=== PATIENT | male | born 1965 | race African-American/Black ===

== ENCOUNTER 2020-07-18 20:44 | Emergency (ER) | payer OTHER ==
[2020-07-18 21:11] VITALS: TEMP 98.6; BMI 22.4
[2020-07-18 22:47] LABS: BASO % 0.6 % (0-2.0); EOS % 0.7 % (0-4.5); HEMATOCRIT 40.2 % (35.4-49); HEMOGLOBIN 13.5 GM/dL (11.7-16.9); LYMPH % 17.4 % (8-40); MCH 34.2 pg (25.7-33.7); MCHC 33.6 g/dl (32.0-35.9); MEAN CELL VOLUME 101.8 fl (80-96); MEAN PLT VOLUME 9.5 fl (7.5-11.1); MONO % 8.6 % (3.8-10.2); NEUT % 72.7 % (42.8-82.8); PLATELET COUNT 209 K/MM3 (134-434); RBC 3.95 M/mm3 (4.00-5.60); RDW 13.4 % (11.9-15.9); WHITE BLOOD COUNT 14.2 K/mm3 (4.0-10.0)
[2020-07-18 22:56] LABS: INR 1.02 (0.83-1.09)
--- NOTE | 2020-07-18 22:57 | PDOC ---
Documentation entered by Margie Carrion SCRIBE, acting as scribe for Leanna Mack DO. Leanna Mack, : This documentation has been prepared by the Sheyla matthews Xhesika, SCRIBE, under my direction and personally reviewed by me in its entirety. I confirm that the documentation accurately reflects all work, treatment, procedures, and medical decision making performed by me. Attending Attestation - Resident Resident Name: Juan Echevarria - ED Attending Attestation I have performed the following: I have examined & evaluated the patient, The case was reviewed & discussed with the resident, I agree w/resident's findings & plan, Exceptions are as noted - HPI HPI: 07/18/20 22:38 The patient is a 54y/o M with a pmh of alcohol, cocaine and marijuana abuse who presents to the ED for detox. Pt states he last used cocaine yesterday. Pt reports abdominal pain and states he's hungry. Pt denies any CP, SOB, fevers, chills, N/V/D. Allergies: Per Nursing Records - Physicial Exam PE: 07/18/20 22:40 GENERAL: Awake, alert, and oriented, in no acute distress. +poor dentition HEAD: No signs of trauma EYES: PERRLA, EOMI, sclera anicteric, conjunctiva clear ENT: Auricles normal inspection, hearing grossly normal, nares patent, oropharynx clear without exudates. Moist mucosa NECK: Normal ROM, supple, no lymphadenopathy, JVD, or masses LUNGS: Breath sounds equal, clear to auscultation bilaterally. No wheezes, and no crackles HEART: Regular rate and rhythm, normal S1 and S2, no murmurs, rubs or gallops ABDOMEN: Soft, nontender, normoactive bowel sounds. No guarding, no rebound. No masses EXTREMITIES: +R arm 1inch healing laceration. Normal range of motion, no edema. No clubbing or cyanosis. NEUROLOGICAL: Cranial nerves II through XII grossly intact. SKIN: Warm, Dry, normal turgor. - Medical Decision Making 07/18/20 22:52 a/p: 54yo male with hx of etoh abuse and cocaine use requesting detox -denies si/hi -c/o dental caries -c/o upper abd pain, no n/v/d -no cp/sob -last use was yesterday -not actively withdraw -will send labs -call placed to [facility] - no bed available -will monitor and reassess 07/18/20 23:21 wbc 14 lac on arm without abscess, but need abx and dental caries - will start clinda, no dental abscess present 07/18/20 23:31 potassium hemolyzed lipase neg trop neg ua neg 07/18/20 23:50 labs reviewed pending [facility] placement in the am pt signed out to the [facility] ED team pending [facility] in the am for detox Heart Score/ECG Review - ECG Intrepretation Comment:: 07/18/20 23:17 sinus at 62, nl axis, nl interval, q waves septally which are age indeterminate, abnl ekg Discharge - Discharge Information Problems reviewed: Yes Clinical Impression/Diagnosis: Cocaine abuse, Alcohol abuse Condition: Stable Disposition: HOME - Admission No - Additional Discharge Information Prescriptions: Clindamycin [Cleocin -] 450 mg PO Q8H 7 Days #63 capsule - Follow up/Referral - Patient Discharge Instructions - Post Discharge Activity
[2020-07-18 22:59] LABS: ACTIVATED PTT 32.9 SECONDS (25.2-36.5)
--- NOTE | 2020-07-18 23:03 | PDOC ---
History of Present Illness - General Chief Complaint: Pain, Acute Stated Complaint: ABD PAIN Time Seen by Provider: 07/18/20 22:14 - History of Present Illness Initial Comments: 07/18/20 22:53 54M h/o polysubstance use presents w/ request to detox. States he used cociane yesterday. Endorses that he smokes it. Also reports regular EtOH use. Endorses a laceration on the R posterior forearm from a few days ago. Endorses some ABD pain. Denies fever, cough, recent illness, but states he has some dental problems. Past History - Medical History Allergies/Adverse Reactions: Allergies Allergy/AdvReac Type Severity Reaction Status Date / Time eggplant Allergy Verified 07/19/20 12:57 No Known Drug Allergies Allergy Verified 07/19/20 12:57 COPD: No Diabetes: Yes - Psycho-Social/Smoking History Smoking History: Current every day smoker Number of Cigarettes Smoked Daily: 5 Information on smoking cessation initiated: No - Substance Abuse Hx (Audit-C & DAST Scrn) How often the patient has a drink containing alcohol: 4 0r more times/wk Number of drinks the patient has on a typical day: 3 or 4 How often the patient has six or more drinks on one occasion: Daily or almost daily Score: In Men: 4 or > Positive; In Women: 3 or > Positive: 9 Screen Result (Pos requires Nsg. Audit-10AR): Positive In the last yr the pt used illegal drug/Rx for NonMed reason: Yes Score: Yes response is considered Positive: 1 Screen Result (Positive result requires Nsg. DAST-10): Positive Review of Systems - Review of Systems Able to Perform ROS?: Yes Constitutional: No: Chills, Diaphoresis, Fever HEENTM: No: Blurred Vision, Nose Congestion, Tinnitus Respiratory: No: Cough, Orthopnea, SOB with Exertion Cardiac (ROS): No: Lightheadedness, Palpitations, Syncope ABD/GI: Yes: Other (endorses ABD discomfort ). No: Abdominal Distended, Nausea, Vomiting : No: Dysuria, Frequency, Hematuria Integumentary: No: Dryness, Rash Neurological: No: Seizure, Ataxia *Physical Exam - Vital Signs Last Vital Signs Temp Pulse Resp BP Pulse Ox 98.6 F 98 H 19 113/74 98 07/18/20 21:01 07/18/20 21:01 07/18/20 21:01 07/18/20 21:01 07/18/20 21:01 - Physical Exam General Appearance: Yes: Nourished, Disheveled, Other (slightly malodorous - poor self hygeine) HEENT: positive: Normal Voice, Other (dental caries and missing teeth appreciated. ) Respiratory/Chest: positive: Lungs Clear, Normal Breath Sounds. negative: Respiratory Distress, Accessory Muscle Use Cardiovascular: positive: Regular Rhythm, Regular Rate, S1, S2 Gastrointestinal/Abdominal: positive: Normal Bowel Sounds, Soft. negative: Distended, Guarding Musculoskeletal: positive: Normal Inspection. negative: CVA Tenderness Extremity: positive: Normal Capillary Refill, Normal Inspection, Normal Range of Motion, Other (1 inch superficial laceration on R posterior forearm. Granulation tissue present. ) Integumentary: positive: Normal Color, Warm. negative: Clammy Neurologic: positive: Fully Oriented, Alert, Normal Response, Responsive ED Treatment Course - LABORATORY CBC & Chemistry Diagram: 07/18/20 22:21 07/18/20 22:21 - ADDITIONAL ORDERS Additional order review: 07/18/20 22:21 RBC 3.95 L MCV 101.8 H MCHC 33.6 RDW 13.4 MPV 9.5 Neutrophils % 72.7 Lymphocytes % 17.4 Monocytes % 8.6 Eosinophils % 0.7 Basophils % 0.6 Medical Decision Making - Medical Decision Making 07/21/20 10:09 1. Detox - spoke with [facility]: bed available 0800 next day. Will obtain UTox and basic labs from pt, rehydrate, and board him until morning when [facility] wi ll take patient. 2. laceration - irrigate/clean and apply bacitracin + bandage since granulation tissue is present; approximating lac w/ sutures is not appropriate at this time Discharge - Discharge Information Problems reviewed: Yes Clinical Impression/Diagnosis: Cocaine abuse, Alcohol abuse, Infected dental carries Condition: Stable Disposition: HOME - Admission No - Follow up/Referral - Patient Discharge Instructions Additional Instructions: You agreed to go to [facility] for detox Take the prescribed Clindamycin as directed Please see a dentist for your teeth cavities - Post Discharge Activity
[2020-07-18 23:12] LABS: PH,URINE 5.5 (5.0-8.0); URINE APPEARANCE CLEAR; URINE BILIRUBIN NEGATIVE (NEGATIVE); URINE COLOR YELLOW; URINE GLUCOSE (UA) NEGATIVE (NEGATIVE); URINE KETONE NEGATIVE (NEGATIVE); URINE LEUK ESTERASE NEGATIVE (NEGATIVE); URINE NITRITE NEGATIVE (NEGATIVE); URINE PROTEIN NEGATIVE (NEGATIVE); URINE UROBILINOGEN 0.2 mg/dL (0.2-1.0)
[2020-07-18] MEDS ORDERED: CLINDAMYCIN HCL 150 MG CAPSULE (FP) PO ONE (23:21)
[2020-07-18 23:29] LABS: ALBUMIN 3.5 g/dl (3.4-5.0); BILIRUBIN,TOTAL 0.6 mg/dL (0.2-1); BLOOD UREA NITROGEN 12.4 mg/dL (7-18); CALCIUM 9.1 mg/dL (8.5-10.1); POTASSIUM 5.6 mmol/L (3.5-5.1); TOT PROT 8.4 g/dl (6.4-8.2)
--- NOTE | 2020-07-18 23:40 | PDOC ---
*Physical Exam - Vital Signs Last Vital Signs Temp Pulse Resp BP Pulse Ox 98.6 F 98 H 19 113/74 98 07/18/20 21:01 07/18/20 21:01 07/18/20 21:01 07/18/20 21:01 07/18/20 21:01 ED Treatment Course - LABORATORY CBC & Chemistry Diagram: 07/18/20 22:21 07/18/20 22:21 - ADDITIONAL ORDERS Additional order review: Laboratory Results 07/18/20 07/18/20 07/18/20 23:00 22:21 22:21 PT with INR INR PTT (Actin FS) Sodium 136 Potassium 5.6 H Chloride 104 Carbon Dioxide 27 Anion Gap 5 L BUN 12.4 Creatinine 1.0 Est GFR (CKD-EPI)AfAm 97.77 Est GFR (CKD-EPI)NonAf 84.35 Random Glucose 92 Lactic Acid 0.8 Calcium 9.1 Magnesium 2.0 Total Bilirubin 0.6 AST 72 H ALT 44 Alkaline Phosphatase 84 Creatine Kinase 888 H Troponin I 0.02 Total Protein 8.4 H Albumin 3.5 Lipase 122 Urine Color Yellow Urine Appearance Clear Urine pH 5.5 Ur Specific [place] 1.011 Urine Protein Negative Urine Glucose (UA) Negative Urine Ketones Negative Urine Blood Negative Urine Nitrite Negative Urine Bilirubin Negative Urine Urobilinogen 0.2 Ur Leukocyte Esterase Negative 07/18/20 22:21 PT with INR 12.00 INR 1.02 PTT (Actin FS) 32.9 Sodium Potassium Chloride Carbon Dioxide Anion Gap BUN Creatinine Est GFR (CKD-EPI)AfAm Est GFR (CKD-EPI)NonAf Random Glucose Lactic Acid Calcium Magnesium Total Bilirubin AST ALT Alkaline Phosphatase Creatine Kinase Troponin I Total Protein Albumin Lipase Urine Color Urine Appearance Urine pH Ur Specific [place] Urine Protein Urine Glucose (UA) Urine Ketones Urine Blood Urine Nitrite Urine Bilirubin Urine Urobilinogen Ur Leukocyte Esterase 07/18/20 22:21 RBC 3.95 L MCV 101.8 H MCHC 33.6 RDW 13.4 MPV 9.5 Neutrophils % 72.7 Lymphocytes % 17.4 Monocytes % 8.6 Eosinophils % 0.7 Basophils % 0.6 - Medications Given in the ED: ED Medications Discontinued Medications Generic Name Dose Route Start Last Admin Trade Name Freq PRN Reason Stop Dose Admin Clindamycin HCl 450 mg 07/18/20 23:21 07/18/20 23:35 Cleocin - PO 07/18/20 23:22 450 mg ONCE ONE Administration Medical Decision Making - Medical Decision Making 07/18/20 23:38 Signed out from day team --- 54M h/o polysubstance use, dental carries, old R forearm lac presents w request for cocaine/etoh detox. CK 800s likely 2/2 polysubstance abuse, WBC 14 likely 2/2 infections Given clindamycin for lac and carries Pt not intoxicated on re-eval, no complaints DC to [facility] at 8am when bed opens up, clindamycin prescription Discharge - Discharge Information Problems reviewed: Yes Clinical Impression/Diagnosis: Cocaine abuse, Alcohol abuse, Infected dental carries Condition: Stable Disposition: HOME - Additional Discharge Information Prescriptions: Clindamycin [Cleocin -] 450 mg PO Q8H 7 Days #63 capsule - Follow up/Referral - Patient Discharge Instructions Additional Instructions: You agreed to go to [facility] for detox Take the prescribed Clindamycin as directed Please see a dentist for your teeth cavities - Post Discharge Activity
[2020-07-19 04:03] VITALS: BP 110/76; PULSE 90
[2020-07-19 10:41] LABS: OPIATES, URI NEGATIVE ng/ml (CUTOFF=300); PHENCYCLIDINE,URINE NEGATIVE ng/ml (CUTOFF=25); URINE AMPHETAMINES NEGATIVE ng/ml (CUTOFF=500)
--- NOTE | 2020-07-19 10:46 | EKG ---
Test Reason : Blood Pressure : / mmHG Vent. Rate : 062 BPM Atrial Rate : 062 BPM P-R Int : 152 ms QRS Dur : 100 ms QT Int : 410 ms P-R-T Axes : 064 -22 025 degrees QTc Int : 416 ms NORMAL SINUS RHYTHM SEPTAL INFARCT , AGE UNDETERMINED LEFT AXIS DEVIATION ABNORMAL ECG NO PREVIOUS ECGS AVAILABLE Confirmed by BARAK SIMON MD ([id number]) on 07/19/2020 10:46:15 AM Referred By: Confirmed By:BARAK SIMON MD
[2020-07-19 10:50] LABS: METHADONE, UR NEGATIVE ng/ml (CUTOFF=300); URINE BARBITURATES NEGATIVE ng/ml (CUTOFF=200); URINE BENZODIAZEPINES NEGATIVE ng/ml (CUTOFF=200)
[2020-07-19 11:25] LABS: COCAINE, UR POSITIVE ng/ml (CUTOFF=300)
== END 2020-07-19 08:19 | disposition home or self-care (01) ==
LOC: JER 20:44
DX: F10.14 Alcohol abuse with alcohol-induced mood disorder (principal); F10.20 Alcohol dependence, uncomplicated
CPT/HCPCS: 36415; 80053; 80307; 81003; 82550; 82553; 83605; 83690; 83735; 84484; 85025; 85610; 85730; 93005; 93010; 99284-25